=== PATIENT | male | born 1980 | race Caucasian/White ===

== ENCOUNTER 2021-01-18 20:02 | Emergency (ER) | payer OTHER ==
[~2021-01-18] VITALS: Ht 165.1 cm; Wt 68.0 kg
[2021-01-18 20:14] VITALS: Ht 165.1 cm; Wt 68.0 kg
[2021-01-18 20:54] VITALS: BP 136/95
== END 2021-01-18 20:54 ==
LOC: ED 20:02
DX: Z02.89 Encounter for other administrative examinations (principal)